=== PATIENT | female | born 1995 | race Caucasian/White ===

== ENCOUNTER → 2017-05-21 12:08 | Outpatient (CLI) | payer BC, MEDICAID ==
[2017-05-21 13:45] LABS: HEMATOCRIT 36.1 % (36.0-48.0); HEMOGLOBIN 11.8 g/dL (12-16); MCH 28.9 pg (26.0-34.0); MCHC 32.7 g/dL (31.0-37.0); MCV 88.5 fL (80.0-100.0); MEAN PLATELET VOLUME 9.3 fL (7.4-10.4); RBC 4.08 10x6/uL (4.00-5.40); RDW 12.7 % (11.5-14.5); WBC 11.4 10x3/uL (4.8-10.8)
[2017-05-21 13:56] LABS: ALBUMIN 2.9 g/dL (3.4-5.0); ALKALINE PHOSPHATASE 84 U/L (46-116); ALT (SGPT) 9 U/L (10-68); BILIRUBIN - TOTAL 0.16 mg/dL (0.2-1.3); CALC OSMOLALITY 270 mosm/kg (275-300); CALCIUM 8.8 mg/dL (8.5-10.1); CARBON DIOXIDE 24.7 mmol/L (21.0-32.0); CHLORIDE - SERUM 103 mmol/L (98-107); CREATININE - SERUM 0.5 mg/dL (0.6-1.3); GLUCOSE 77 mg/dL (74-106); POTASSIUM - SERUM 3.8 mmol/L (3.5-5.1); PROTEIN - SERUM 6.3 g/dL (6.4-8.2); SODIUM 137 mmol/L (136-145); UREA NITROGEN 6 mg/dL (7-18); URIC ACID 3.2 mg/dL (2.6-7.2); eGFR NON AFRICAN AMERICAN > 90 mL/min (90-120)
[2017-05-21 13:57] LABS: BILIRUBIN - DIRECT 0.03 mg/dL (0.00-0.30)
[2017-05-22 15:19] LABS: PROTEIN - URINE 8.9 mg/dL (0.0-11.9)
== END | disposition home or self-care (01) ==
LOC: D.LDO 12:08
PROVIDERS: Obstetrics & Gynecology
DX: O16.9 Unspecified maternal hypertension, unspecified trimester (principal); Z3A.00 Weeks of gestation of pregnancy not specified

== ENCOUNTER → 2017-06-30 11:02 | Outpatient (CLI) | payer BC, MEDICAID ==
[2017-06-30 12:09] LABS: BASOPHILS 0.2 % (0-2); EOSINOPHILS 1.3 % (0-7); HEMATOCRIT 33.6 % (36.0-48.0); IMMATURE GRANULOCYTES 1.7 % (0-5); LYMPHOCYTES 21.2 % (15-50); MCH 28.4 pg (26.0-34.0); MCHC 32.7 g/dL (31.0-37.0); MCV 86.6 fL (80.0-100.0); MEAN PLATELET VOLUME 9.9 fL (7.4-10.4); MONOCYTES 11.6 % (2-11); PLATELET COUNT 246 10x3/uL (130-400); RBC 3.88 10x6/uL (4.00-5.40); RDW 12.5 % (11.5-14.5); WBC 12.7 10x3/uL (4.8-10.8)
[2017-06-30 12:15] LABS: ALBUMIN 2.5 g/dL (3.4-5.0); ALKALINE PHOSPHATASE 140 U/L (46-116); ALT (SGPT) 8 U/L (10-68); CALC OSMOLALITY 267 mosm/kg (275-300); CALCIUM 8.9 mg/dL (8.5-10.1); CARBON DIOXIDE 22.1 mmol/L (21.0-32.0); CHLORIDE - SERUM 103 mmol/L (98-107); CREATININE - SERUM 0.5 mg/dL (0.6-1.3); GLUCOSE 76 mg/dL (74-106); POTASSIUM - SERUM 3.8 mmol/L (3.5-5.1); PROTEIN - SERUM 5.7 g/dL (6.4-8.2); SODIUM 136 mmol/L (136-145); UREA NITROGEN 4 mg/dL (7-18); URIC ACID 2.7 mg/dL (2.6-7.2); eGFR NON AFRICAN AMERICAN > 90 mL/min (90-120)
[2017-06-30 12:17] LABS: BILIRUBIN - DIRECT 0.02 mg/dL (0.00-0.30); BILIRUBIN - INDIRECT 0.08 mg/dL (0.00-1.00)
[2017-06-30 12:45] LABS: APPEARANCE CLEAR (CLEAR); BACTERIA MANY /hpf (NONE SEEN); BILIRUBIN NEGATIVE (NEGATIVE); COLOR YELLOW (YELLOW); GLUCOSE NEGATIVE (NEGATIVE); KETONE NEGATIVE (NEGATIVE); MUCUS <1+ /lpf (NONE SEEN); NITRITE NEGATIVE (NEGATIVE); PROTEIN NEGATIVE (NEGATIVE); RED CELLS - URINE 0-5 /hpf (0-5); UROBILINOGEN NORMAL (NORMAL)
[2017-08-03 09:57] VITALS: BMI 33.2
== END | disposition home or self-care (01) ==
LOC: D.LDO 11:02
PROVIDERS: Obstetrics & Gynecology
DX: O16.3 Unspecified maternal hypertension, third trimester (principal); Z3A.34 34 weeks gestation of pregnancy

== ENCOUNTER 2017-08-01 20:59 | Inpatient (IN) | payer BC, MEDICAID ==
[~2017-08-01] VITALS: Ht 154.9 cm; Wt 79.8 kg
--- NOTE | ~2017-08-01 | OP ---
PATIENT NAME: AMILCAR GARCIA MEDICAL RECORD: [id number] LOCATION:[id number] ADMISSION DATE:08/01/17 SURGEON: JENNIFER GARCÍA MD DATE OF OPERATION: 08/04/2017 PREDELIVERY DIAGNOSIS: at term. POSTDELIVERY DIAGNOSIS: Mother delivered at term. PROCEDURE: Induction of labor with spontaneous vaginal delivery. ANESTHESIOLOGIST: Dr. Botello ANESTHETIC: Continuous lumbar epidural. FINDINGS: Viable male infant, vertex presentation. Apgars were 9 and 9, weight 7 pounds 3 ounces. First-degree laceration with 3-0 chromic repair. Placenta spontaneous and intact. Increased blood loss after delivery of placenta with administration of Methergine 0.2 mg IM and 600 mcg of misoprostol per rectum. ESTIMATED BLOOD LOSS: 475 cc. DISPOSITION: Mother and recovered in the room. TRANSINT:[id number] Voice Confirmation ID: [id number] DOCUMENT ID: [id number] JENNIFER GARCÍA MD at 1308 CC: [id number] DICTATION DATE: 08/04/17 0115 MANAGER TRAINEE: 08/04/17 0837 ADM IN [facility] [address] [place] [address]
[2017-08-01 22:44] LABS: HEMATOCRIT 32.3 % (36.0-48.0); HEMOGLOBIN 10.6 g/dL (12-16); MCHC 32.8 g/dL (31.0-37.0); MCV 85.2 fL (80.0-100.0); MEAN PLATELET VOLUME 10.1 fL (7.4-10.4); RBC 3.79 10x6/uL (4.00-5.40); RDW 13.3 % (11.5-14.5); WBC 11.4 10x3/uL (4.8-10.8)
[2017-08-01 22:47] LABS: UDS - AMPHET NEGATIVE QUAL (NEGATIVE); UDS - BARB NEGATIVE QUAL (NEGATIVE); UDS - BENZO NEGATIVE QUAL (NEGATIVE); UDS - COCAINE NEGATIVE QUAL (NEGATIVE); UDS - OPIATE NEGATIVE QUAL (NEGATIVE); UDS - PCP NEGATIVE QUAL (NEGATIVE); UDS - THC NEGATIVE QUAL (NEGATIVE)
[2017-08-01 22:49] LABS: APPEARANCE CLEAR (CLEAR); BILIRUBIN NEGATIVE (NEGATIVE); COLOR YELLOW (YELLOW); GLUCOSE NEGATIVE (NEGATIVE); KETONE NEGATIVE (NEGATIVE); NITRITE NEGATIVE (NEGATIVE); PROTEIN NEGATIVE (NEGATIVE); UROBILINOGEN NORMAL (NORMAL)
[2017-08-01 23:04] VITALS: BP 140/60
[2017-08-03 06:15] LABS: RAPID PLASMA REAGIN Non Reactive (Non Reactive)
[2017-08-03 09:57] VITALS: Ht 154.9 cm; Wt 79.8 kg
[2017-08-04 04:00] VITALS: BP 156/78
[2017-08-04 07:34] VITALS: BP 139/81
[2017-08-04 16:00] VITALS: BP 129/75
[2017-08-04 19:17] VITALS: BP 114/65
[2017-08-04 23:12] VITALS: BP 115/74
[2017-08-05 06:51] LABS: HEMATOCRIT 24.8 % (36.0-48.0); HEMOGLOBIN 8.1 g/dL (12-16); MCH 27.7 pg (26.0-34.0); MCHC 32.7 g/dL (31.0-37.0); MCV 84.9 fL (80.0-100.0); MEAN PLATELET VOLUME 10.3 fL (7.4-10.4); RBC 2.92 10x6/uL (4.00-5.40); RDW 13.4 % (11.5-14.5); WBC 13.8 10x3/uL (4.8-10.8)
[2017-08-05 07:21] VITALS: BP 116/66
== END 2017-08-05 14:49 | disposition home or self-care (01) | DRG 775 ==
LOC: D.WS 20:59 → D.LD 20:59 → D.WS 08-04 04:00
PROVIDERS: Obstetrics & Gynecology
PROC: 10907ZC Drainage of Amniotic Fluid, Therapeutic from Products of Conception, Via Natural or Artificial Opening (ICD-10-PCS; principal; 2017-08-03)
PROC: 3E033VJ Introduction of Other Hormone into Peripheral Vein, Percutaneous Approach (ICD-10-PCS; 2017-08-03)
PROC: 10E0XZZ Delivery of Products of Conception, External Approach (ICD-10-PCS; 2017-08-04)
PROC: 0HQ9XZZ Repair Perineum Skin, External Approach (ICD-10-PCS; 2017-08-04)
DX: O70.0 First degree perineal laceration during delivery (principal); Z3A.39 39 weeks gestation of pregnancy; Z37.0 Single live birth; Z87.891 Personal history of nicotine dependence